=== PATIENT | female | born 1965 | race Caucasian/White ===

== ENCOUNTER 2019-12-21 15:06 | Outpatient (CLI) | payer BC, SELFPAY ==
--- NOTE | 2019-12-21 15:14 | XR_ITS ---
WS: [id number] CHEST 2 VIEWS HISTORY: DYSPNEA, ASTHMA COMPARISON: 12/10/2018 Lungs: Clear with no abnormality. No pleural effusion or pneumothorax. Cardiac size: Normal. Mediastinum/Aorta: Normal mediastinum. Bones: Normal. XR/XR chest 2V* [id number] IMPRESSION: Normal chest.
== END 2019-12-21 15:07 | disposition home or self-care (01) ==
LOC: RADWPI 15:08
PROVIDERS: Family Provider Family Medicine; PCP Nurse Practitioner Family; Visit Provider Nurse Practitioner Family
DX: R06.00 Dyspnea, unspecified (principal); J45.20 Mild intermittent asthma, uncomplicated
CPT/HCPCS: 71046

== ENCOUNTER 2020-10-23 07:37 | Outpatient (CLI) | payer BC, SELFPAY ==
--- NOTE | 2020-10-23 07:42 | MM_ITS ---
WS: [id number] Exam: [place] [id number] Date/Time of Exam: 10/23/2020 7:49 AM Reason For Exam: SCREENING VIEWS: MLO and CC views both breasts. Comparison made with prior exam of 08/21/2018, 07/05/2016.. Findings: No sign of suspicious mass, tumor calcification or architectural distortion.Scattered fibroglandular densities MM/[place] [id number] Impression: BI-RADS: 2-Benign FOLLOW-UP: 1 Year Follow-up This mammogram was also analyzed by the Computer Aided Detection System R2 Imag e Atmospheric Physicist.
== END 2020-10-23 07:38 | disposition home or self-care (01) ==
LOC: RADSHAW 07:40
PROVIDERS: PCP Family Medicine; Visit Provider Family Medicine
DX: Z12.31 Encounter for screening mammogram for malignant neoplasm of breast (principal)
CPT/HCPCS: 77067

== ENCOUNTER → 2021-01-23 10:21 | Outpatient (BNVA) | payer BC, SELFPAY | PROVIDERS: PCP Family Medicine; Visit Provider Specialist | DX: G56.02 Carpal tunnel syndrome, left upper limb (principal); M77.12 Lateral epicondylitis, left elbow | CPT/HCPCS: 95908 ==

== ENCOUNTER → 2021-02-21 15:59 | Outpatient (BNVA) | payer BC, SELFPAY | PROVIDERS: PCP Family Medicine; Referring Provider Family Medicine; Visit Provider Specialist | DX: G56.02 Carpal tunnel syndrome, left upper limb (principal) | CPT/HCPCS: 73110 ==

== ENCOUNTER → 2021-02-22 12:35 | Outpatient (BNVA) | payer BC, SELFPAY | PROVIDERS: PCP Family Medicine; Visit Provider Specialist | DX: Z01.812 Encounter for preprocedural laboratory examination (principal); Z20.822 Contact with and (suspected) exposure to COVID-19 | CPT/HCPCS: 87635 ==

== ENCOUNTER → 2021-02-26 16:11 | Outpatient (BNVA) | payer BC, SELFPAY | PROVIDERS: PCP Family Medicine; Visit Provider Specialist | DX: Z01.812 Encounter for preprocedural laboratory examination (principal); Z20.822 Contact with and (suspected) exposure to COVID-19 | CPT/HCPCS: 87635 ==

== ENCOUNTER 2021-03-02 05:49 | Day surgery (SDC) | payer BC, SELFPAY ==
[2021-03-01 14:56] VITALS: BMI 24.0
[2021-03-02 06:05] VITALS: BP 138/78; PULSE 64; RESP 18; TEMP 36.1; O2SAT 97
[2021-03-02] MEDS: acetaminophen 1,000 MG/100 ML PIGGYBACK 400 MG IV (06:39)
[2021-03-02 06:40] LABS: Glucose Point of Care 111 mg/dL (70-110)
[2021-03-02] MEDS: sodium chloride 0.9% 1,000 ML 30 ML IV (06:40)
--- NOTE | 2021-03-02 06:40 | ANES.PREANE2 ---
Pre-Anesthetic Assessment Pre-Anesthetic Assessment: Height/Weight: Height 1.63 m Weight 63.503 kg Temp Pulse Resp BP Pulse Ox 97.0 F L 64 18 138/78 97 03/02/21 06:05 03/02/21 06:05 03/02/21 06:05 03/02/21 06:05 03/02/21 06:05 Preop Diagnosis: Left carpal tunnel syndrome Proposed Procedure: Operation Date: 03/02/21 07:00 Proposed Procedures p Carpal Tunnel Release 43268 G56.00(Left) - Maritza Loo MD Was Beta Cha taken within 24 hours: N/A Was Clonidine taken within 24 hours: N/A Last intake: Intake Last Liquid Date 03/01/21 Last Liquid Time 20:00 Last Solid Date 03/01/21 Last Solid Time 20:00 Social: Social History: No alcohol and No tobacco Exam: Pre-Anes Outpt Exam: alert, oriented x 3, clear to auscultation bilaterally and regular rate & rhythm Airway: Submandibular: WNL Cervical ROM: WNL MP: 2 Dentition: Full Pulmonary: Pulmonary: Asthma CV/HEM: CV/HEM: HTN Anesthetic Plan: ASA status: 2 Anesthesia: MAC and Regional (specify below) (Nasim phillips) Risk of > 500 ml blood loss (7ml/kg in children): No Data Anesthesia Cardiac Studies: No Data to Display
[2021-03-02] MEDS: CELEcoxib 200 mg Capsule 400 MG PO (06:42)
--- NOTE | 2021-03-02 06:58 | P.HPUD_ITS ---
Surgery/Procedure H&P Update DATE OF PROCEDURE: March 02, 2021 DATE H&P PERFORMED: 02/21/21 H&P UPDATE INFORMATION: I have reviewed H&P completed within last 30 days, I have examined patient prior to procedure, No changes to prior documentation and H&P is in [facility] EMR on date indicated PREOP DIAGNOSIS: Left carpal tunnel syndrome PLANNED PROCEDURE: Operation Date: 03/02/21 07:00 Proposed Procedures p Carpal Tunnel Release [id number] G56.00(Left) - Maritza Loo MD Related Problem List Diagnoses (1) Left carpal tunnel syndrome:
[2021-03-02 07:50] VITALS: BP 130/74; PULSE 51; RESP 16; TEMP 36.3; O2SAT 100
--- NOTE | 2021-03-02 07:53 | SUR.PHASEI ---
PT TO PACU SLEEPY WITH GOOD RESP EFFORT, VSS IV PATENT LT HAND DISTAL FINGERS PINK WARM WITH FAST CAP REFILL PT DENIES PAIN, LT HAND ELEVATED ON CHEST, PT ABLE TO MOVE LT FINGERS EASILY AND TO COMMAND.
[2021-03-02 07:55] VITALS: BP 138/77; PULSE 61; RESP 18; O2SAT 100
[2021-03-02 08:00] VITALS: BP 132/79; PULSE 55; RESP 16; TEMP 36.3; O2SAT 99
--- NOTE | 2021-03-02 08:07 | PM.OP ---
Operative Report Date of procedure: March 02, 2021 Pre-op Diagnosis: Left carpal tunnel syndrome Post-op diagnosis: same Post-op Findings: Compression across the carpal canal Procedure Done: Left carpal tunnel release Specimens removed/disposition: None Pathology: none sent Anesthesia: MAC (With [place] block) Estimated blood loss (mL): 2 Tourniquet time (min): 28 Tourniquet time: At 250 mmHg IV fluids (mL): 250 Urine output (mL): 0 Urine output: No Horowitz Complications: None Findings: Discoloration of median nerve secondary to compression Condition: stable Disposition: PACU (Then to same-day surgery for discharge to home) Brief History: This 55-year-old woman presented with complaints consistent with carpal tunnel syndrome. After discussion, she wished to proceed with carpal tunnel release. Risks and complications were discussed with her. Consents were signed preoperatively. Questions were answered, and the patient was scheduled. Procedure: The patient was brought to the operating theater. The patient had a [place] block with MAC. The tourniquet was elevated to 250 mmHg for a total tourniquet time of 28 minutes. The patient was also given Ancef 2 g preoperatively. The arm was then prepped and draped with DuraPrep in usual fashion with the arm draped free. A surgical pause was performed. At the time, the surgical pause, we confirmed the site and side of surgery. We also confirmed the patient's identity, appropriate and timely administration of preoperative antibiotics and preoperative surgical markings. An incision was then made along the thenar crease. The incision crossed the wrist joint in a curvilinear fashion. Dissection continued through skin and soft tissues using a scalpel. The palmaris longus was identified along with the transverse carpal ligament. Each of these was released carefully to avoid injury to the median nerve. We were able to dissect gently into the carpal canal which was noted to be quite tight with significant compression across the median nerve. The nerve was visualized and had a purplish discoloration. The canal was subsequently palpated to assure there was no bony encroachment upon the canal. There was a quite thickened fibrous tissue within the canal, and this was opened longitudinally as well. The canal was then palpated distally and proximally to assure that my small finger was passed easily without impingement. Finding this to be so, attention was directed to closure. The wound was irrigated with ropivacaine plain. It was then closed with 3-0 nylon in an interrupted mattress fashion. Sterile dressing was then placed consisting of Xeroform gauze, fluffed fluffs, sterile soft roll, a volar splint, and an Bg wrap. The tourniquet was released after 28 minutes. There were no complications. There were no specimens. The procedure was well tolerated. Plan is the patient will be discharged home. Associated Problem List Diagnoses (1) Left carpal tunnel syndrome:
[2021-03-02 08:13] VITALS: BP 128/76; PULSE 59; RESP 16; O2SAT 96
[2021-03-02 08:26] VITALS: BP 146/81; PULSE 48; RESP 18; O2SAT 100
--- NOTE | 2021-03-02 15:26 | ANE.PACU2 ---
Inpatient post-anesthesia follow up: Airway intact: Yes Vital signs: Temperature 97.3 F Pulse Rate 48 Respiratory Rate 18 Blood Pressure 146/81 Pulse Oximetry 100 Oxygen Delivery Me thod Room Air Oxygen Flow Rate 8 Fraction of Inspir ed Oxygen Hydration adequate: Yes Nausea and vomiting: No Pain level: 1 Mental status: Baseline
== END 2021-03-02 08:52 | disposition home or self-care (01) ==
PROVIDERS: PCP Family Medicine; Visit Provider Specialist
PROC: (CPT 64721; principal; 2021-03-02 07:00)
DX: G56.02 Carpal tunnel syndrome, left upper limb (principal); J45.909 Unspecified asthma, uncomplicated; I10 Essential (primary) hypertension
CPT/HCPCS: 64721; 36416; 82962; 96365; J0690; J2704; J3490; J7030

== ENCOUNTER 2022-01-31 08:03 | Outpatient (CLI) | payer BC, SELFPAY ==
--- NOTE | 2022-01-31 08:09 | MM_ITS ---
WS: [id number] BILATERAL 3D TOMOSYNTHESIS DIGITAL SCREENING MAMMOGRAPHY WITH CAD CLINICAL INFORMATION: SCREENING HISTORY: Screening mammogram. No current complaints. COMPARISON: October 23, 2020 TECHNIQUE: Bilateral CC and MLO views. FINDINGS: Scattered fibroglandular densities bilaterally. A few incidental punctate calcifications. Vascular ca lcification. No suspicious focal mass, asymmetry, calcifications, or architectural distortion. No brian dence of malignancy. MM/[place] [id number] IMPRESSION: BI-RADS: 2-Benign FOLLOW UP: 1 Year Follow-up Recommend return to annual screening mammography.
== END 2022-01-31 08:04 | disposition home or self-care (01) ==
LOC: RAD 08:05
PROVIDERS: PCP Family Medicine; Visit Provider Family Medicine
DX: Z12.31 Encounter for screening mammogram for malignant neoplasm of breast (principal)
CPT/HCPCS: 77063; 77067

== ENCOUNTER → 2022-07-29 07:37 | Outpatient (BNVA) | payer BC, SELFPAY | PROVIDERS: PCP Family Medicine; Visit Provider Podiatrist Foot & Ankle Surgery | DX: M25.871 Other specified joint disorders, right ankle and foot (principal); M21.611 Bunion of right foot | CPT/HCPCS: 73630 ==

== ENCOUNTER 2023-02-06 07:35 | Outpatient (CLI) | payer BC, SELFPAY ==
--- NOTE | 2023-02-06 07:51 | MM_ITS ---
WS: [id number] Bilateral screening 3D tomosynthesis digital mammogram, 02/06/2023 Clinical Data: SCREENING Comparison: 01/31/2022, 10/23/2020, 08/21/2018, 07/05/2016, 06/01/2008, 08/15/2006. Findings: The breast parenchymal pattern shows fibroglandular tissue. No spiculated masses are seen. There are no secondary signs of carcinoma. In the right breast in the upper central region at the 12:00 positio n there are small calcifications which have increased slightly in size and number compared to prior s tudy. Recommend magnification views of this region in the ML and CC projection. Right breast ultrasou nd may also be done. MM/[place] [id number] Impression: 1. Slight increase in calcifications in the superior central portion of the ri ght breast at the 12:00 position. 2. Recommend magnification views of the right breast in the CC and ML projecti on and right breast ultrasound.. BIRADS: 0-Incomplete: Need additional imaging evaluation FOLLOW UP: See Report The CAD cashier checker was used.
== END 2023-02-06 07:36 | disposition home or self-care (01) ==
LOC: RAD 07:38
PROVIDERS: PCP Family Medicine; Visit Provider Family Medicine
DX: Z12.31 Encounter for screening mammogram for malignant neoplasm of breast (principal)
CPT/HCPCS: 77063; 77067

== ENCOUNTER 2023-03-18 10:51 | Outpatient (CLI) | payer BC, SELFPAY ==
--- NOTE | 2023-03-18 11:00 | MM_ITS ---
WS: [id number] VIEWS: Magnification compression spot images of the right breast are obtained in the and MLO proje ctions. Also a 90 degree lateral view of the right breast was included in the series. Comparisons: 01/31/2022, 02/20/2021, 08/21/2018, 07/05/2016 06/01/2008 and 08/15/2006. There are several coarse calcifications identified in the upper central right breast. These have rebecca gn appearance. No associated architectural distortion or mass noted in this region. Scattered areas of fibroglandular density in the right breast. MM/[place] [id number] Impression: BI-RADS: 2-Benign finding. FOLLOW-UP: 1 Year Follow-up This mammogram was also analyzed by the Computer Aided Detection System R2 Imag e Reagent Tender Helper.
== END 2023-03-18 10:52 | disposition home or self-care (01) ==
PROVIDERS: PCP Family Medicine; Visit Provider Family Medicine
DX: R92.8 Other abnormal and inconclusive findings on diagnostic imaging of breast (principal)
CPT/HCPCS: 77061; G0279

== ENCOUNTER 2023-09-12 06:28 | Day surgery (SDC) | payer BC, SELFPAY ==
[2023-09-12 06:41] VITALS: BP 121/84; PULSE 106; RESP 18; TEMP 36.8; O2SAT 94; BMI 26.6
[2023-09-12] MEDS: sodium chloride 0.9% 1,000 ML 30 ML IV (06:51)
[2023-09-12 06:55] LABS: Glucose Point of Care 158 mg/dL (70-110)
--- NOTE | 2023-09-12 06:58 | P.ANESASSM_ITS ---
Pre-Anesthetic Assessment Height/Weight: Height 1.63 m Weight 70.307 kg Temp Pulse Resp BP Pulse Ox O2 Del Method 98.2 F 106 H 18 121/84 94 Room Air 09/12/23 06:41 09/12/23 06:41 09/12/23 06:41 09/12/23 06:41 09/12/23 06:41 09/12/23 06:41 Preop Diagnosis: screening Operation Date: 09/12/23 07:30 Proposed Procedures p 11342 colon G0121 screen colon A risk Z12.11(Not Applicable) - Kevin Colon, DO Was Beta Cha taken within 24 hours: N/A Was Clonidine taken within 24 hours: N/A Last intake: Intake Last Liquid Date 09/11/23 Last Liquid Time 22:00 Last Solid Date 09/10/23 Last Solid Time 21:30 Social No alcohol and No tobacco Exam alert and oriented x 3 Airway Submandibular: within normal limits Cervical ROM: within normal limits Mallampati: Class II Dentition: full History/ROS No significant history except as noted Pulmonary Asthma CV/HEM Hypertension None reported Hepatic None reported GI None reported Metabolic Diabetes Mellitus and Hyperlipidemia [facility] Fibromyalgia and Lower Back Pain Neuropsych None reported Anesthetic Plan ASA status: 3 Anesthesia: MAC Risk of > 500 ml blood loss (7ml/kg in children): No Medications/Allergies Home Medications Medication Instructions Recorded Confirmed Last Taken Type levalbuterol tartrate 45 2 inh inhalation Q6H PRN Shortness 01/23/21 09/12/23 03/01/21 History mcg/actuation aerosol inhaler Of Breath (Xopenex HFA) lisinopril 10 mg tablet 10 mg PO DAILY 01/23/21 09/12/23 09/10/23 History montelukast 10 mg tablet 10 mg PO DAILY 01/23/21 09/12/23 09/10/23 History trazodone 100 mg tablet 100 mg PO .hs 01/23/21 09/12/23 09/11/23 History cetirizine 5 mg tablet 5 mg PO DAILY 03/01/21 09/12/23 09/10/23 History multivitamin 1 tab PO DAILY 03/01/21 09/12/23 09/10/23 History simvastatin 20 mg tablet 20 mg PO DAILY 07/29/22 09/12/23 09/10/23 History metformin 500 mg tablet 500 mg PO DAILY 07/31/23 09/12/23 09/11/23 History budesonide-formoterol HFA 160 2 inh inhalation BID 09/10/23 09/12/23 09/12/23 06:00 History mcg-4.5 mcg/actuation aerosol inhaler (Symbicort) Allergies Allergy/AdvReac Type Severity Reaction Status Date / Time codeine Allergy Severe heart race Verified 09/10/23 08:50 hydromorphone [From Dilaudid] Allergy Severe nausea and Verified 09/10/23 08:50 vomitting Current Medications Generic Name Dose Route Start Last Admin Trade Name Freq PRN Reason Stop Dose Admin Sodium Chloride 1,000 mls @ 30 mls/hr 09/12/23 06:30 09/12/23 06:51 Sodium Chloride 0.9% IV 09/13/23 06:29 30 mls/hr .Q24H BETHANY Administration PFSH Anesthesia Family History Mother Myelodysplasia (myelodysplastic syndrome) Heart disease Social History Smoking and tobacco/nicotine status: never used tobacco/nicotine Alcohol intake: never Data Anesthesia Cardiac Studies: No Data to Display
--- NOTE | 2023-09-12 07:33 | PM.HP ---
Providers/Chief Complaint Primary Care Provider: Gisel Prakash MD Chief Complaint: Z12.11 History of Present Illness Lavonne Santos is a 58 year old female Review of Systems General: Reports: 10 or more systems reviewed and unremarkable except in HPI and below Medications/Allergies Home Medications Medication Instructions Recorded Confirmed Last Taken Type levalbuterol tartrate 45 2 inh inhalation Q6H PRN Shortness 01/23/21 09/12/23 03/01/21 History mcg/actuation aerosol inhaler Of Breath (Xopenex HFA) lisinopril 10 mg tablet 10 mg PO DAILY 01/23/21 09/12/23 09/10/23 History montelukast 10 mg tablet 10 mg PO DAILY 01/23/21 09/12/23 09/10/23 History trazodone 100 mg tablet 100 mg PO .hs 01/23/21 09/12/23 09/11/23 History cetirizine 5 mg tablet 5 mg PO DAILY 03/01/21 09/12/23 09/10/23 History multivitamin 1 tab PO DAILY 03/01/21 09/12/23 09/10/23 History simvastatin 20 mg tablet 20 mg PO DAILY 07/29/22 09/12/23 09/10/23 History metformin 500 mg tablet 500 mg PO DAILY 07/31/23 09/12/23 09/11/23 History budesonide-formoterol HFA 160 2 inh inhalation BID 09/10/23 09/12/23 09/12/23 06:00 History mcg-4.5 mcg/actuation aerosol inhaler (Symbicort) Allergies Allergy/AdvReac Type Severity Reaction Status Date / Time codeine Allergy Severe heart race Verified 09/10/23 08:50 hydromorphone [From Dilaudid] Allergy Severe nausea and Verified 09/10/23 08:50 vomitting PFSH Acute PFSH: Family History Mother Myelodysplasia (myelodysplastic syndrome) Heart disease Social History Smoking and tobacco/nicotine status: never used tobacco/nicotine Alcohol intake: never Vitals/I&O/Wt Last Vital Signs Temp 98.2 F 09/12/23 06:41 Pulse 106 H 09/12/23 06:41 Resp 18 09/12/23 06:41 BP 121/84 09/12/23 06:41 Pulse Ox 94 09/12/23 06:41 O2 Del Method Room Air 09/12/23 06:41 Weight last 48 hrs Weight 155 lb A&P Assessment and plan (1) Colon cancer screening: Plan Colonoscopy Attestations Medical Necessity Statement*: Home Coding Level of Care Code Acute Code for Chg Fwd Diagnoses Colon cancer screening Z12.11
[2023-09-12 07:53] VITALS: BP 109/77; PULSE 81; RESP 18; O2SAT 96
[2023-09-12 08:08] VITALS: BP 111/76; PULSE 77; RESP 18; O2SAT 98
[2023-09-12 08:20] VITALS: BP 120/78; PULSE 79; RESP 16; O2SAT 97
== END 2023-09-12 08:45 | disposition home or self-care (01) ==
PROVIDERS: PCP Family Medicine; Visit Provider Surgery
PROC: 0DJD8ZZ Inspection of Lower Intestinal Tract, Via Natural or Artificial Opening Endoscopic (ICD-10-PCS; CPT 45378; principal; 2023-09-12 07:30)
DX: Z12.11 Encounter for screening for malignant neoplasm of colon (principal); Z79.84 Long term (current) use of oral hypoglycemic drugs; I10 Essential (primary) hypertension; E11.9 Type 2 diabetes mellitus without complications; E78.5 Hyperlipidemia, unspecified; M79.7 Fibromyalgia
CPT/HCPCS: 36416; 45378; 82962; J2704; J7030

== ENCOUNTER → 2024-03-29 07:55 | Outpatient (BNVA) | payer BC, SELFPAY | PROVIDERS: PCP Family Medicine; Visit Provider Podiatrist Foot & Ankle Surgery | DX: M79.671 Pain in right foot (principal); M20.11 Hallux valgus (acquired), right foot; M21.611 Bunion of right foot | CPT/HCPCS: 73630 ==

== ENCOUNTER 2024-04-14 07:40 | Outpatient (CLI) | payer BC, SELFPAY ==
--- NOTE | 2024-04-14 07:44 | MM_ITS ---
WS: [id number] BILATERAL SCREENING DIGITAL TOMOSYNTHESIS MAMMOGRAM WITH CAD HISTORY: SCREENING COMPARISON: 03/18/2023, 02/06/2023, 10/23/2020 Bilateral CC and MLO views with tomosynthesis and synthetic mammography submitted. Computer aided det ection analyzed. Breast composition: There are scattered areas of fibroglandular density. No suspicious masses, microc alcifications or architectural distortion. There are a few benign scattered calcifications in each br east. MM/[place] [id number] IMPRESSION: BI-RADS: 2-Benign FOLLOW UP: 1 Year Follow-up
== END 2024-04-14 07:41 | disposition home or self-care (01) ==
PROVIDERS: PCP Family Medicine; Visit Provider Family Medicine
DX: Z12.31 Encounter for screening mammogram for malignant neoplasm of breast (principal)
CPT/HCPCS: 77063; 77067

== ENCOUNTER 2024-04-30 07:43 | Day surgery (SDC) | payer BC, SELFPAY ==
[2024-04-30] VITALS (11 sets, daily range): BP systolic 104–158; BP diastolic 66–90; PULSE 53–78; RESP 16–20; TEMP 36.2–36.8; O2SAT 95–100; BMI 25.7
[2024-04-30] MEDS: gabapentin 300 mg Capsule PO (08:23)
[2024-04-30] MEDS: CELEcoxib 200 mg Capsule 400 MG PO (08:23)
[2024-04-30] MEDS: scopolamine 1.5 Patch 1 PATCH TRANSDERMA (08:24)
[2024-04-30] MEDS: sodium chloride 0.9% 1,000 ML 30 ML IV (08:49)
--- NOTE | 2024-04-30 08:58 | W.PM.OPSUD ---
Surgery/Procedure H&P Update DATE OF PROCEDURE: April 30, 2024 DATE H&P PERFORMED: 04/30/24 H&P UPDATE INFORMATION: I have reviewed H&P completed within last 30 days, I have examined patient prior to procedure, No changes to prior documentation and H&[place] is in [facility] [place] on date indicated PREOP DIAGNOSIS: Right bunion PLANNED PROCEDURE: Operation Date: 04/30/24 09:20 Proposed Procedures p modified Bunionectomy Miguel A(Right) - Gonzalo Maldonado DPM
--- NOTE | 2024-04-30 09:02 | P.HP_ITS ---
Providers/Chief Complaint Primary Care Provider: Gisel Prakash MD Chief Complaint: M79.67 History of Present Illness Lavonne Santos is a 58 year old female presenting to clinic for evaluation of increase pain to her medial right foot. She has pain daily with and without shoes, has tried wider shoes, tried padding spacing anti-inflammatory stretching orthotics without relief. She has been wearing wider toe shoes and [place] re covery slide. Patient states that her pain is experienced every day. Would like to discuss surgical options. Patient denies any subjective nausea, vomiting, fever, chills, shortness of breath or chest pain. Review of Systems General: Reports: 10 or more systems reviewed and unremarkable except in HPI and below Const: Denies: fever(s) or chills Eyes: Denies: change in vision Card: Denies: chest pain or palpitations Resp: Denies: dyspnea or productive cough GI: Denies: abdominal pain, nausea or vomiting : Denies: flank pain Musc: Reports: extremity pain, joint pain, joint stiffness, limited range of motion and deformity Skin/Breast: Reports: skin tenderness; Denies: rash Neuro: Reports: difficulty walking; Denies: numbness in extremities, sensory changes or frequent falls Psych: Denies: suicidal ideation Hipolito/Lymph: Denies: easy bruising Medications/Allergies Home Medications Medication Instructions Recorded Confirmed Last Taken Type levalbuterol tartrate 45 2 inh inhalation Q6H PRN Shortness 01/23/21 04/30/24 2 Months Ago History mcg/actuation aerosol inhaler Of Breath ~02/29/24 (Xopenex HFA) lisinopril 10 mg tablet 10 mg PO DAILY 01/23/21 04/29/24 04/29/24 History montelukast 10 mg tablet 10 mg PO DAILY 01/23/21 04/29/24 04/29/24 History trazodone 100 mg tablet 100 mg PO .hs 01/23/21 04/30/24 04/29/24 History cetirizine 5 mg tablet 5 mg PO DAILY 03/01/21 04/29/24 04/29/24 History multivitamin 1 tab PO DAILY 03/01/21 04/29/24 04/29/24 History simvastatin 20 mg tablet 20 mg PO DAILY 07/29/22 04/29/24 04/29/24 History metformin 500 mg tablet 500 mg PO DAILY 07/31/23 04/29/24 04/29/24 History budesonide-formoterol HFA 160 2 inh inhalation BID 09/10/23 04/29/24 04/30/24 06:30 History mcg-4.5 mcg/actuation aerosol inhaler (Symbicort) Allergies Allergy/AdvReac Type Severity Reaction Status Date / Time codeine Allergy Severe heart race Verified 03/29/24 08:01 hydromorphone [From Dilaudid] Allergy Severe nausea and Verified 03/29/24 08:01 vomitting PFSH PFSH: Family History Mother Myelodysplasia (myelodysplastic syndrome) Heart disease Social History Smoking and tobacco/nicotine status: never used tobacco/nicotine Alcohol intake: never Vital Signs Vitals Signs: Last Vital Signs Temp 98.3 F 04/30/24 07:59 Pulse 78 04/30/24 07:59 Resp 18 04/30/24 07:59 BP 153/90 04/30/24 08:24 Pulse Ox 98 04/30/24 07:59 O2 Del Method Room Air 04/30/24 08:00 Weight: Weight last 48 hrs Weight 150 lb Physical Exam Narrative: EXAM NARRATIVE: Patient is alert and oriented ?3 and in no acute distress. The following is a focused bilateral lower extremity exam. VASCULAR: Dorsalis pedis and posterior tibial arteries palpable +2. Capillary refill time less than 3 seconds to the distal hallux bilaterally. Calf is supple and nontender proximally and distally. No pedal edema appreciated. Pedal hair growth present. NEUROLOGICAL: Epicritic and protopathic sensations grossly intact to the lower extremities. +2 Achilles tendon reflex noted bilaterally. Negative Tinel sign upon percussion of lower extremity nerves. DERMATOLOGICAL: Lower extremity skin is well-hydrated, normal texture and turgor. There are no open sores or lesions noted to the lower extremities. No erythema or ecchymosis present to the bilateral legs and feet. MUSCULOSKELETAL: Pain to palpation right bunion, pain is at the right first metatarsal phalange joint and medial aspect of right first metatarsal head. Metatarsus adductus right. First metatarsal phalangeal joint dorsiflexion right foot is 60 degrees. Bunion deformity that is not track bound to the right lower extremity. No crepitus or pain with range of motion at the right bunion. Muscle strength 5 out of 5 in all 3 planes to the bilateral foot and ankle. CARDIOVASCULAR: S1, S2, normal rate, normal rhythm. Dorsalis pedis and posterior tibial arteries palpable. LUNGS: Clear to auscltation, no use of acessory muscles, no crackles or wheezes. A&P Assessment and plan (1) Bunion, right: (2) Right foot pain: Plan Hallux noted to be an abducted position. Tibial sesamoid position: 4. 1 - 2 IM angle is 10 degrees. Hallux abductus angle is 30deg. Metatarsal adductus angle is 8 degrees. Sieberg index of 2 mm. X-ray taken right foot 3 views, radiographic evaluation of bunion deformity as above. Patient has failed conservative treatment over the past 2 years no longer experiencing relief with wide accommodative shoes, active modifications, anti-inflammatories, padding and spacing would like to discuss surgical correction of her right painful bunion. Recommended Miguel A possible Eduar osteotomy. Discussed risks, benefits and expected recovery time. I reviewed at length with the patient, the risks, potential complications, benefits, alternatives, expectations, and typical outcomes associated with the surgery. The risks and potential complications were explained in detail, including but not limited to infection, wound dehiscence or soft tissue complications, bleedi ng and hematoma, chronic edema, neuritis or nerve damage producing numbness or chronic pain, CRPS, failure to relieve pain or worsening pain, thick / painful / unsightly scar, limited motion / stiffness, malposition, delayed union, malunion, or nonunion, fracture, reaction to implants, anesthetic complications, venous thromboembolism, and deformity recurrence. I discussed the notion of no regrets with the patient as it pertains to complications and outcomes. The patient seemed to understand the nature of the proposed care and required convalescence. They asked appropriate questions, answered to their satisfaction. They are aware no guarantees can be made as to a satisfactory outcome and they understand there may be other possible unforeseen complications or outcomes not listed here that will be treated accordingly if they arise. There were no written or implied guarantees given to the patient. They gave informed consent to proceed. Scheduled right Miguel A possible Eduar bunionectomy on May 07, 2024 will be outpatient local [facility] supine. Coding Level of Care Code Acute Code for Chg Fwd Diagnoses Bunion, right M21.611 Right foot pain M79.671
--- NOTE | 2024-04-30 09:09 | ANES.PREANE2 ---
Pre-Anesthetic Assessment Height/Weight: Height 1.63 m Weight 68.039 kg Temp Pulse Resp BP Pulse Ox O2 Del Method 98.3 F 78 18 153/90 98 Room Air 04/30/24 07:59 04/30/24 07:59 04/30/24 07:59 04/30/24 08:24 04/30/24 07:59 04/30/24 08:00 Preop Diagnosis: Right bunion Operation Date: 04/30/24 09:20 Proposed Procedures p modified Bunionectomy Miguel A(Right) - Gonzalo Maldonado, DPM Was Beta Cha taken within 24 hours: N/A Last intake: Intake Last Liquid Date 04/29/24 Last Liquid Time 21:30 Last Solid Date 04/29/24 Last Solid Time 21:30 Social No alcohol and No tobacco Exam alert, oriented x 3, clear to auscultation bilaterally and regular rate & rhythm Airway Submandibular: within normal limits Cervical ROM: within normal limits Mallampati: Class I Pulmonary Asthma CV/HEM Hypertension Metabolic Diabetes Mellitus and Hyperlipidemia Anesthetic Plan ASA status: 2 Anesthesia: MAC Medications/Allergies Home Medications Medication Instructions Recorded Confirmed Last Taken Type levalbuterol tartrate 45 2 inh inhalation Q6H PRN Shortness 01/23/21 04/30/24 2 Months Ago History mcg/actuation aerosol inhaler Of Breath ~02/29/24 (Xopenex HFA) lisinopril 10 mg tablet 10 mg PO DAILY 01/23/21 04/29/24 04/29/24 History montelukast 10 mg tablet 10 mg PO DAILY 01/23/21 04/29/24 04/29/24 History trazodone 100 mg tablet 100 mg PO .hs 01/23/21 04/30/24 04/29/24 History cetirizine 5 mg tablet 5 mg PO DAILY 03/01/21 04/29/24 04/29/24 History multivitamin 1 tab PO DAILY 03/01/21 04/29/24 04/29/24 History simvastatin 20 mg tablet 20 mg PO DAILY 07/29/22 04/29/24 04/29/24 History metformin 500 mg tablet 500 mg PO DAILY 07/31/23 04/29/24 04/29/24 History budesonide-formoterol HFA 160 2 inh inhalation BID 09/10/23 04/29/24 04/30/24 06:30 History mcg-4.5 mcg/actuation aerosol inhaler (Symbicort) Allergies Allergy/AdvReac Type Severity Reaction Status Date / Time codeine Allergy Severe heart race Verified 03/29/24 08:01 hydromorphone [From Dilaudid] Allergy Severe nausea and Verified 03/29/24 08:01 vomitting Current Medications Generic Name Dose Route Start Last Admin Trade Name Freq PRN Reason Stop Dose Admin Sodium Chloride 1,000 mls @ 30 mls/hr 04/30/24 07:45 04/30/24 08:49 Sodium Chloride 0.9% IV 05/01/24 07:44 30 mls/hr .Q24H BETHANY Administration PFSH Anesthesia Family History Mother Myelodysplasia (myelodysplastic syndrome) Heart disease Social History Smoking and tobacco/nicotine status: never used tobacco/nicotine Alcohol intake: never Data Anesthesia Cardiac Studies: No Data to Display
--- NOTE | 2024-04-30 09:12 | W.PM.BPON ---
Date of Procedure: 11/14/23 Surgeon: Gonzalo Maldonado DPM [place] Spreader(s): René NÑUEZ Procedure(s) performed: Right modified Miguel A bunionectomy Findings of the procedure(s): None Estimated blood loss: 2 mL Specimen(s) removed: None Post-operative diagnosis: Right bunion Local richard SAGE, supine, tourniquet time 30 minutes, right ankle tourniquet 250 mmHg. 3 mm screw by 20 mm length
[2024-04-30] MEDS: ceFAZolin 2,000 mg SDV 2000 MG IVP (09:16)
[2024-04-30] MEDS: BUPivacaine liposome 13.3 mg/mL SDV 20 mL 266 MG INJECTION (09:31)
[2024-04-30] MEDS: BUPivacaine 0.5% INJ 10 mL 20 ML INJECTION (09:31)
--- NOTE | 2024-04-30 10:08 | PM.OP ---
Operative Report Date of procedure: April 30, 2024 Pre-op diagnosis: Right foot pain M79.671 Hallux valgus with bunions of right foot M20.11; M21.611 Post-op diagnosis: Same Procedure done: Right modified Miguela bunionectomy. CPT code 38644 Implants: [place] 3 mm headed cannulated screw by 20 mm in length, 3-0 Vicryl, 4-0 Vicryl, 4 nylon. Specimens removed/disposition: No specimens Pathology: No pathology Surgeon: Gonzalo Maldonado DPM Superintendent Colliery: René NUÑEZ Estimated blood loss: 2 mL 30 minutes IV fluids: See intraoperative documentation Urine output: None Complications: None Brief History: Hallux noted to be an abducted position. Tibial sesamoid position: 4. 1 - 2 IM angle is 10 degrees. Hallux abductus angle is 30deg. Metatarsal adductus angle is 8 degrees. Sieberg index of 2 mm. X-ray taken right foot 3 views, radiographic evaluation of bunion deformity as above. Patient has failed conservative treatment over the past 2 years no longer experiencing relief with wide accommodative shoes, active modifications, anti-inflammatories, padding and spacing would like to discuss surgical correction of her right painful bunion. Recommended Miguel A possible Eduar osteotomy. Discussed risks, benefits and expected recovery time. I reviewed at length with the patient, the risks, potential complications, benefits, alternatives, expectations, and typical outcomes associated with the surgery. The risks and potential complications were explained in detail, including but not limited to infection, wound dehiscence or soft tissue complications, bleeding and hematoma, chronic edema, neuritis or nerve damage producing numbness or chronic pain, CRPS, failure to relieve pain or worsening pain, thick / painful / unsightly scar, limited motion / stiffness, malposition, delayed union, malunion, or nonunion, fracture, reaction to implants, anesthetic complications, venous thromboembolism, and deformity recurrence. I discussed the notion of no regrets with the patient as it pertains to complications and outcomes. The patient seemed to understand the nature of the proposed care and required convalescence. They asked appropriate questions, answered to their satisfaction. They are aware no guarantees can be made as to a satisfactory outcome and they understand there may be other possible unforeseen complications or outcomes not listed here that will be treated accordingly if they arise. There were no written or implied guarantees given to the patient. They gave informed consent to proceed. Procedure: Under mild sedation the patient was brought to the operating room and remained on the gurney in supine position. A timeout was performed. Anesthesia was then administered by the anesthesia service. Local anesthesia was injected by myself consisting of 20 cc of 0.5% Marcaine plain in a right male block fashion with an additional 20 cc of Exparel subcutaneously in a grid like fashion proximal to the operative site of the right foot. Well-padded pneumatic tourniquet applied to the right ankle. Right lower extremity was scrubbed, prepped and draped utilizing normal aseptic technique followed by examination of the right foot with an Esmarch bandage and tourniquet being inflated to 250 mmHg. Attention was directed to the dorsal medial aspect of the right first metatarsal phalangeal joint where a linear longitudinal incision was made medial and parallel to the extensor hallucis longus tendon through skin with a #15 blade with dissection carried down to the joint capsule of the first metatarsal phalangeal joint utilizing a combination of sharp and blunt technique. Care was taken to retract and preserve neurovascular and tendinous structures. All bleeders were ligated and cauterized as necessary. Incision Was Performed in the Head of the First Metatarsal Was Freed from Its Soft Tissue and Capsular Attachments, Oscillating Saw Utilized to Resect the Medial [place] of the First Metatarsal Head Followed by Chevron Osteotomy with [place] Oriented Distally in the Head of the First Metatarsal Was Translated Laterally in a More Anatomic Corrected Position and Fixated Utilizing Standard AO Technique with a [place] 20 Mm Screw by 3 Mm in Diameter with Excellent Bony Apposition and Compression Noted. IntraOp C Arm in the AP, Oblique and Lateral Standard Views Confirmed Excellent Placement of Hardware without Violating the First Metatarsal Phalangeal Joint in a Reduced Intermetatarsal Angle. Smooth Range Of Motion Appreciated Intraoperatively at the Right First Metatarsal Phalangeal Joint without Crepitus. The Incision Was Irrigated with Saline Solution. Medial Shelf Was Transected with Sagittal Saw and All Rough Edges Were Smoothed. Further Irrigation Was Performed and Closure in a Layered Fashion with Joint Capsule Reapproximated with 3-0 Vicryl, Subcutaneous Tissue with 4-0 Vicryl and Skin with 4-0 Nylon. The Incision Was Dressed with Adaptic, Sterile 4 X 4's, Kerlix and Bg Wrap Followed by Application of a Cam Boot to the Right Lower Extremity. Tourniquet Was Deflated and a Prompt Hyperemic Response Is Noted to the Distal Digits of the Right Foot. Patient Tolerated the Procedure and Anesthesia Well and Was Transferred to the PACU with Vital Signs Stable Vascular Status Intact. Following a Period of Postoperative Monitoring She Will Be Discharged Home Is to Be Limited Weightbearing May Weight-Bear with a Cam Boot for Transfers and Is Otherwise to Elevate and Rest. Given at Home Care Instructions, Scheduled Follow-Up and Myself Number to Contact with Any Postoperative Questions or Concerns.
[2024-04-30 11:17] LABS: Glucose Point of Care 166 mg/dL (70-110)
--- NOTE | 2024-04-30 16:02 | XR_ITS ---
WS: [id number] Examination: XR foot RT 2V [id number] Reason for Exam: [facility] Date: April 30, 2024 Comparison: 03/29/2024 Findings: 2 intraoperative images have been obtained. There is screw fixation of the first metatarsal head foll owing osteotomy. XR/XR foot RT 2V [id number] Impression: Intraoperative images during bunionectomy. Please see intraoperative note for f ull explanation of the findings and the procedure.
== END 2024-04-30 11:45 | disposition home or self-care (01) ==
PROVIDERS: PCP Family Medicine; Visit Provider Podiatrist Foot & Ankle Surgery
PROC: (CPT 28296; principal; 2024-04-30 09:10)
DX: M20.11 Hallux valgus (acquired), right foot (principal); M21.611 Bunion of right foot; E11.9 Type 2 diabetes mellitus without complications; E78.5 Hyperlipidemia, unspecified; Z79.85 Long-term (current) use of injectable non-insulin antidiabetic drugs; J45.909 Unspecified asthma, uncomplicated
CPT/HCPCS: 28296; 36416; 73620; 76000; 82962; C1713; C9290; J0690; J2250; J2704; J3010; J3490; J7030

== ENCOUNTER → 2024-05-13 14:26 | Outpatient (BNVA) | payer BC, SELFPAY | PROVIDERS: PCP Family Medicine; Visit Provider Podiatrist Foot & Ankle Surgery | DX: M79.671 Pain in right foot; M20.11 Hallux valgus (acquired), right foot; M21.611 Bunion of right foot | CPT/HCPCS: 73630 ==

== ENCOUNTER → 2024-06-10 14:21 | Outpatient (BNVA) | payer BC, SELFPAY | PROVIDERS: PCP Family Medicine; Visit Provider Podiatrist Foot & Ankle Surgery | DX: Z98.890 Other specified postprocedural states (principal) | CPT/HCPCS: 73630 ==

== ENCOUNTER → 2024-07-01 07:56 | Outpatient (BNVA) | payer BC, SELFPAY | PROVIDERS: PCP Family Medicine; Visit Provider Podiatrist Foot & Ankle Surgery | DX: Z98.890 Other specified postprocedural states (principal); M21.611 Bunion of right foot | CPT/HCPCS: 73630 ==

== ENCOUNTER 2025-04-19 07:48 | Outpatient (CLI) | payer BC, SELFPAY ==
--- NOTE | 2025-04-19 08:00 | MM_ITS ---
WS: [id number] Bilateral screening 3D tomosynthesis digital mammogram, 04/19/2025 7:58 AM Clinical Data: screening Comparison: 04/14/2024, 03/18/2023, 02/06/2023, 01/31/2022, 10/23/2020, 08/21/2018, 07/05/2016, 06/01/2008, 08/15/2006. Findings: No spiculated masses or clustered calcifications are seen. There are no secondary signs of carcinoma. MM/MM scr BI tomosynthesis [id number] Impression: Negative bilateral mammogram unchanged. Recommend annual screening mammograms. BIRADS: 1 - Negative. FOLLOW UP: 1 Year Follow-up DENSITY: There are scattered areas of fibroglandular density. The CAD production checker was used
== END 2025-04-19 07:49 | disposition home or self-care (01) ==
LOC: RAD 07:49
PROVIDERS: PCP Family Medicine; Visit Provider Family Medicine
DX: Z12.31 Encounter for screening mammogram for malignant neoplasm of breast (principal)
CPT/HCPCS: 77063; 77067

== ENCOUNTER → 2025-04-22 09:11 | Outpatient (BNVA) | payer BC, SELFPAY | PROVIDERS: PCP Family Medicine; Visit Provider Family Medicine | DX: E11.9 Type 2 diabetes mellitus without complications (principal); E78.2 Mixed hyperlipidemia; I10 Essential (primary) hypertension | CPT/HCPCS: 80053; 80061; 82043; 83036; 84439; 84443; 85025 ==